=== PATIENT | female | born 1995 | race Caucasian/White ===

== ENCOUNTER 2019-08-19 20:23 | Emergency (ER) | payer OTHER ==
--- NOTE | 2019-08-19 22:25 | ER ---
Nurse's Notes [facility] Name: Sonia Finn Age: 23 yrs Sex: Female : 1995 Arrival Date: 08/19/2019 Time: 20:29 Bed 12 Private MD: Diagnosis: Sprain of ankle Presentation: 08/18 20:31 Care prior to arrival: None. sg 20:31 Acuity: DANISHA 4 sg 20:31 Chief complaint: Patient states: I was walking when I stepped in a hole and hurt my sg left ankle and left foot. Coronavirus screen: Proceed with normal triage. Ebola Screen: Patient negative for fever greater than or equal to 101.5 degrees Fahrenheit, and additional compatible Ebola Virus Disease symptoms Patient denies exposure to infectious person. Patient denies travel to an Ebola-affected area in the 21 days before illness onset. No symptoms or risks identified at this time. Initial Sepsis Screen: Does the patient meet any 2 criteria? No. Patient's initial sepsis screen is negative. Does the patient have a suspected source of infection? No. Patient's initial sepsis screen is negative. Risk Assessment: Do you want to hurt yourself or someone else? Patient reports no desire to harm self or others. Onset of symptoms was August 19, 2019. Transition of care: patient was not received from another setting of care. 20:31 Method Of Arrival: Wheelchair sg Historical: - Allergies: 20:57 No Known Allergies; sg - Home Meds: 20:57 None [Active]; sg - PMHx: 20:57 None; sg - PSHx: 20:57 None; sg - Immunization history:: Adult Immunizations up to date. - Social history:: Smoking status: Patient denies any tobacco usage or history of. Screenin:57 Abuse screen: Denies threats or abuse. Denies injuries from another. Nutritional sg screening: No deficits noted. Tuberculosis screening: No symptoms or risk factors identified. Never had TB. Fall Risk None identified. Assessment: 20:57 General: Appears in no apparent distress. well groomed, well developed, well nourished, sg Behavior is calm, cooperative, appropriate for age. Pain: Complains of pain in left lateral ankle Quality of pain is described as aching. Neuro: Level of Consciousness is awake, alert, obeys commands, Oriented to person, place, time, Outside Sales Professional are equal bilaterally Moves all extremities. Full function Speech is normal, Facial symmetry appears normal. Cardiovascular: Capillary refill is brisk in bilateral fingers Patient's skin is warm and dry. Chest pain is denied. Respiratory: Airway is patent Respiratory effort is even, unlabored, Respiratory pattern is regular, symmetrical. GI: Abdomen is round non-distended. : No signs and/or symptoms were reported regarding the genitourinary system. EENT: No signs and/or symptoms were reported regarding the EENT system. Derm: Skin is pink, warm \T\ dry. Musculoskeletal: Circulation, motion, and sensation intact. Range of motion: intact in all extremities, Swelling present in left lateral ankle Reports pain in left lateral ankle. 22:30 Reassessment: Patient appears in no apparent distress at this time. while assisting pt sg into personal vehicle with her dad, visualized one set of crutches, pt reports those are hers to use at home. Vital Signs: 20:31 BP 132 / 80; Pulse 87; Resp 14; Temp 98.2; Pulse Ox 100% on R/A; Pain 4/10; sg ED Course: 20:29 Patient arrived in ED. cf2 20:30 Arm band placed on. sg 20:30 Patient has correct armband on for positive identification. Call light in reach. Pulse sg ox on. NIBP on. 20:31 Triage completed. sg 20:40 Icepack applied to the left ankle. sg 20:54 Verna Youngblood FNP-C is PHCP. snw 20:54 Lauri Perez MD is Attending Physician. snw 20:57 No provider procedures requiring assistance completed. Patient did not have IV access sg during this emergency room visit. 20:58 Evaristo Anderson, MILI is Primary Nurse. sg 22:24 Brian Juarez MD is Referral Physician. snw 22:25 Ankle Left 3 View XRAY In Process Unspecified. EDMS 22:25 a walking boot size small applied to the left foot, pt reports feels comfortable with sg boot in place. Administered Medications: 21:10 Drug: fentaNYL (PF) 75 mcg Route: IM; Site: left deltoid; sg 21:10 Drug: Valium 2 mg Route: PO; sg Outcome: 22:25 Discharge ordered by . snw 22:31 Discharged to home via wheelchair, with family. sg 22:31 Condition: good 22:31 Discharge instructions given to patient, Instructed on discharge instructions, follow up and referral plans. no drinking with medication, no driving heavy equipment, medication usage, safety practices, crutch walking, Demonstrated understanding of instructions, follow-up care, medications, crutch walking, Prescriptions given X 2. 22:32 Patient left the ED. sg Signatures: Dispatcher [employer] EDEvaristo Jaramillo RN RN sg Verna Youngblood, SALES CONSULTING DIRECTOR-C SALES CONSULTING DIRECTOR-Csnw Morteza Corona cf2
--- NOTE | 2019-08-19 22:25 | EDPHYS ---
Physician Documentation [facility] Name: Sonia Finn Age: 23 yrs Sex: Female : 1995 Arrival Date: 08/19/2019 Time: 20:29 Bed 12 Private MD: ED Physician Lauri Perez HPI: 08/18 22:32 This 23 yrs old Female presents to ER via Wheelchair with complaints of Ankle snw Injury, Ankle Swelling, Fall Injury. 22:32 The patient presents with an injury, pain, that is acute. The complaints affect the snw left ankle. Onset: The symptoms/episode began/occurred suddenly, just prior to arrival. Context: The problem was sustained outdoors, resulted from a mis-step by the patient, hole, The mechanism of injury involved inversion of the affected ankle. The patient is unable to bear weight. The patient is not able to ambulate. Associated signs and symptoms: Pertinent positives: swelling, of the left lateral ankle. Modifying factors: The symptoms are alleviated by nothing, the symptoms are aggravated by movement. Severity of symptoms: At their worst the symptoms were moderate. The patient has not experienced similar symptoms in the past. It is unknown whether or not the patient has recently seen a physician. Historical: - Allergies: 20:57 No Known Allergies; sg - Home Meds: 20:57 None [Active]; sg - PMHx: 20:57 None; sg - PSHx: 20:57 None; sg - Immunization history:: Adult Immunizations up to date. - Social history:: Smoking status: Patient denies any tobacco usage or history of. ROS: 22:33 Constitutional: Negative for fever, chills, and weight loss, Eyes: Negative for injury, snw pain, redness, and discharge, ENT: Negative for injury, pain, and discharge, Neck: Negative for injury, pain, and swelling, Cardiovascular: Negative for chest pain, palpitations, and edema, Respiratory: Negative for shortness of breath, cough, wheezing, and pleuritic chest pain, Abdomen/GI: Negative for abdominal pain, nausea, vomiting, diarrhea, and constipation, Back: Negative for injury and pain, : Negative for injury, bleeding, discharge, and swelling, Skin: Negative for injury, rash, and discoloration, Neuro: Negative for headache, weakness, numbness, tingling, and seizure, Psych: Negative for depression, anxiety, suicide ideation, homicidal ideation, and hallucinations. 22:33 MS/extremity: Positive for injury or acute deformity, decreased range of motion, pain, swelling, of the left lateral ankle. Exam: 21:09 Constitutional: This is a well developed, well nourished patient who is awake, alert, snw and in no acute distress. Head/Face: Normocephalic, atraumatic. Eyes: Pupils equal round and reactive to light, extra-ocular motions intact. Lids and lashes normal. Conjunctiva and sclera are non-icteric and not injected. Cornea within normal limits. Periorbital areas with no swelling, redness, or edema. ENT: Nares patent. No nasal discharge, no septal abnormalities noted. Tympanic membranes are normal and external auditory canals are clear. Oropharynx with no redness, swelling, or masses, exudates, or evidence of obstruction, uvula midline. Mucous membranes moist. Neck: Trachea midline, no thyromegaly or masses palpated, and no cervical lymphadenopathy. Supple, full range of motion without nuchal rigidity, or vertebral point tenderness. No Meningismus. Chest/axilla: Normal chest wall appearance and motion. Nontender with no deformity. No lesions are appreciated. Cardiovascular: Regular rate and rhythm with a normal S1 and S2. No gallops, murmurs, or rubs. Normal PMI, no JVD. No pulse deficits. Respiratory: Lungs have equal breath sounds bilaterally, clear to auscultation and percussion. No rales, rhonchi or wheezes noted. No increased work of breathing, no retractions or nasal flaring. Abdomen/GI: Soft, non-tender, with normal bowel sounds. No distension or tympany. No guarding or rebound. No evidence of tenderness throughout. Back: No spinal tenderness. No costovertebral tenderness. Full range of motion. Skin: Warm, dry with normal turgor. Normal color with no rashes, no lesions, and no evidence of cellulitis. Neuro: Awake and alert, GCS 15, oriented to person, place, time, and situation. Cranial nerves II-XII grossly intact. Motor strength 5/5 in all extremities. Sensory grossly intact. Cerebellar exam normal. Normal gait. Psych: Awake, alert, with orientation to person, place and time. Behavior, mood, and affect are within normal limits. 21:09 Musculoskeletal/extremity: Extremities: grossly normal except: Vital Signs: 20:31 BP 132 / 80; Pulse 87; Resp 14; Temp 98.2; Pulse Ox 100% on R/A; Pain 4/10; sg MDM: 20:55 Patient medically screened. snw 08/18 21:01 Order name: Ankle Left 3 View XRAY snw 08/18 21:01 Order name: Ice pack; Complete Time: 21:01 snw Administered Medications: 21:10 Drug: fentaNYL (PF) 75 mcg Route: IM; Site: left deltoid; sg 21:10 Drug: Valium 2 mg Route: PO; sg Disposition: 08/19 06:50 Co-signature as Attending Physician, Lauri Perez MD I agree with the assessment and tw4 plan of care. Disposition: 08/19/19 22:25 Discharged to Home. Impression: Sprain of ankle. - Condition is Stable. - Discharge Instructions: Elastic Bandage and RICE, Ankle Sprain, Crutch Use, Ankle Pain, Cryotherapy, Heat Therapy, Walking Boot. - Prescriptions for Diclofenac Sodium 75 mg Oral Tablet Sustained Release - take 1 tablet by ORAL route 2 times per day; 30 tablet. orphenadrine citrate 100 mg Oral Tablet Sustained Release - take 1 tablet by ORAL route 2 times per day As needed; 20 tablet. - Medication Reconciliation Form, Thank You Letter, Antibiotic Education, Prescription Opioid Use form. - Follow up: Emergency Department; When: As needed; Reason: Worsening of condition. Follow up: Private Physician; When: As needed. Follow up: Brian Juarez MD; When: 2 - 3 days; Reason: Recheck today's complaints, Continuance of care, Re-evaluation by your physician. Signatures: Dispatcher [employer] Evaristo Cole RN RN sg Verna Youngblood, FABIEN-C FURNITURE MOVER HELPER-Lauri Justin MD MD tw4 Corrections: (The following items were deleted from the chart) 08/18 22:32 22:25 08/19/2019 22:25 Discharged to Home. Impression: Sprain of ankle. Condition is sg Stable. Forms are Medication Reconciliation Form, Thank You Letter, Antibiotic Education, Prescription Opioid Use. Follow up: Emergency Department; When: As needed; Reason: Worsening of condition. Follow up: Private Physician; When: As needed. Follow up: Dr. Brian Juarez; When: 2 - 3 days; Reason: Recheck today's complaints, Continuance of care, Re-evaluation by your physician. snw
[2019-08-19 22:38] VITALS: BP 132/80; TEMP 98.2; O2SAT 100
--- NOTE | 2019-08-20 12:19 | RAD REPORT ---
EXAM DESCRIPTION: RAD - Ankle Left 3 View - 08/19/2019 10:25 pm CLINICAL HISTORY: Pain;Swelling COMPARISON: No comparisons FINDINGS: Moderate soft tissue swelling is seen along the lateral malleolus. No acute fracture or di slocation seen.
== END 2019-08-19 22:32 | disposition home or self-care (01) ==
LOC: ER 20:23
DX: S93.402A Sprain of unspecified ligament of left ankle, initial encounter (principal); X58.XXXA Exposure to other specified factors, initial encounter; Y93.01 Activity, walking, marching and hiking; Y92.9 Unspecified place or not applicable
CPT/HCPCS: 96372; 99284